=== PATIENT | male | born 1945 | race Caucasian/White ===

== ENCOUNTER 2017-07-25 15:23 | Emergency (ER) | payer SELFPAY ==
[2017-07-25 15:29] VITALS: RESP 18; TEMP 97.6
--- NOTE | 2017-07-25 15:50 | ED PDOC ---
HPI: Hypertension/Hypotension Time Seen by Provider: 07/25/17 15:37 Chief Complaint (Nursing): High Blood Pressure Chief Complaint (Provider): High blood pressure History Per: Patient History/Exam Limitations: no limitations Onset/Duration Of Symptoms: Days (today) Additional Complaint(s): Pt. with high blood pressure hx and takes med for it. [place] pressure and it was 160 systolic. Pt. has no symptoms. No chest pain, dyspnea, weakness, headaches, dizziness, abd pain, nausea, vomit , dizziness, weakness. No numbness, tingles. Urinating well, with no issues. Past Medical History Reviewed: Nursing Documentation, Vital Signs Vital Signs: Last Vital Signs Temp 97.6 F 07/25/17 15:26 Pulse 86 07/25/17 15:26 Resp 18 07/25/17 15:26 BP 169/88 H 07/25/17 15:26 Pulse Ox 99 07/25/17 15:26 - Medical History PMH: Diabetes, HTN, Hypercholesterolemia - Surgical History Surgical History: No Surg Hx - Family History Family History: States: Unknown Family Hx - Social History Alcohol: None Drugs: Denies - Allergies Allergies/Adverse Reactions: Allergies Allergy/AdvReac Type Severity Reaction Status Date / Time No Known Allergies Allergy Verified 07/25/17 15:25 Review of Systems ROS Statement: Except As Marked, All Systems Reviewed And Found Negative Physical Exam - Reviewed Nursing Documentation Reviewed: Yes Vital Signs Reviewed: Yes - Physical Exam Appears: Positive for: Non-toxic, No Acute Distress Head Exam: Positive for: ATRAUMATIC, NORMAL INSPECTION, NORMOCEPHALIC Skin: Positive for: Normal Color, Warm, DRY Eye Exam: Positive for: EOMI, Normal appearance, PERRL ENT: Positive for: Normal ENT Inspection Neck: Positive for: Normal, Painless ROM Cardiovascular/Chest: Positive for: Regular Rate, Rhythm Respiratory: Positive for: CNT, Normal Breath Sounds Gastrointestinal/Abdominal: Positive for: Normal Exam, Soft. Negative for: Tenderness Back: Positive for: Normal Inspection. Negative for: L CVA Tenderness, R CVA Tenderness Extremity: Positive for: Normal ROM. 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 Negative for: Motor/Sensory Deficits, Aphasia - ECG ECG: Positive for: Interpreted By Me, Viewed By Me ECG Rhythm: Positive for: Normal QRS, Normal ST Segment, Sinus Rhythm Interpretation Of Abn EKG: PACs O2 Sat by Pulse Oximetry: 99 Pulse Ox Interpretation: Normal - Progress ED Course And Treament: 1600: Stable. AAOx3. Pain free. No symptoms. FU with pcp. Ambulated with no issues. Disposition - Clinical Impression Clinical Impression: Hypertension - Patient ED Disposition Is Patient to be Admitted: No Counseled Patient/Family Regarding: Studies Performed, Diagnosis, Need For Followup - Disposition Referrals: [facility] [Outside] Disposition: Routine/Home Disposition Time: 16:00 Condition: STABLE Additional Instructions: Return if not better in 3 days. Instructions: High Blood Pressure in Adults Forms: [facility] ([place]), [facility] ED School/Work Excuse
[2017-07-25 17:31] VITALS: BP 150/80; PULSE 90; O2SAT 100
== END 2017-07-25 16:35 | disposition home or self-care (01) ==
LOC: H.ER 15:23
DX: I10 Essential (primary) hypertension (principal)